=== PATIENT | male | born 1995 | race Caucasian/White ===

== ENCOUNTER 2020-08-27 03:21 | Emergency (ER) | payer SELFPAY ==
[~2020-08-27] VITALS: Ht 175.3 cm; Wt 63.6 kg
[2020-08-27 03:29] VITALS: Ht 175.3 cm; Wt 63.6 kg
[2020-08-27 03:52] LABS: BASOPHILS 0.3 % (0-2); EOSINOPHILS 0.9 % (0-7); HEMOGLOBIN 14.4 g/dL (13.5-17.5); IMMATURE GRANULOCYTES 0.2 % (0-5); LYMPHOCYTES 21.2 % (15-50); MCH 30.3 pg (26.0-34.0); MCHC 34.3 g/dL (31.0-37.0); MCV 88.4 fL (80.0-100.0); MONOCYTES 8.5 % (2-11); NEUTROPHILS 68.9 % (40-80); PLATELET COUNT 319 10x3/uL (130-400); RBC 4.75 10x6/uL (4.20-6.10); RDW 13.5 % (11.5-14.5); WBC 10.9 10x3/uL (4.8-10.8)
[2020-08-27 04:03] LABS: CALC OSMOLALITY 277 mosm/kg (275-300); CALCIUM 9.5 mg/dL (8.5-10.1); CARBON DIOXIDE 27.8 mmol/L (21.0-32.0); CHLORIDE - SERUM 104 mmol/L (98-107); CREATININE - SERUM 1.1 mg/dL (0.6-1.3); GLUCOSE 102 mg/dL (74-106); POTASSIUM - SERUM 3.8 mmol/L (3.5-5.1); SODIUM 139 mmol/L (136-145); UREA NITROGEN 13 mg/dL (7-18); eGFR NON AFRICAN AMERICAN 85 mL/min (90-120)
[2020-08-27 04:16] LABS: ALKALINE PHOSPHATASE 80 U/L (30-120); ALT (SGPT) 16 U/L (10-68); AMYLASE - SERUM 90 U/L (25-115); BILIRUBIN - TOTAL 0.32 mg/dL (0.2-1.3); LIPASE 163 U/L (73-393); PROTEIN - SERUM 7.2 g/dL (6.4-8.2); TROPONIN-I < 0.017 ng/mL (0.000-0.060)
[2020-08-27 04:57] LABS: BILIRUBIN NEGATIVE (NEGATIVE); KETONE NEGATIVE (NEGATIVE); NITRITE NEGATIVE (NEGATIVE); UROBILINOGEN NORMAL mg/dL (< 2)
[2020-08-27 04:58] LABS: AMORPHOUS SEDIMENT >1+ LPF (NONE SEEN); BACTERIA FEW HPF (NONE SEEN); EPITHELIAL CELLS 0-5 /hpf (0-5)
[2020-08-27] MEDS ORDERED: CIPRO500 MG PO (05:06)
[2020-08-27] MEDS ORDERED: FLOMAX0.4 MG PO (05:06)
[2020-08-27] MEDS ORDERED: TORADOL10 MG PO (05:06)
[2020-08-27 05:19] VITALS: BP 125/65
== END 2020-08-27 05:19 | disposition home or self-care (01) ==
LOC: D.ER 03:21
PROVIDERS: Emergency Medicine
DX: N20.1 Calculus of ureter (principal); N39.0 Urinary tract infection, site not specified; R10.31 Right lower quadrant pain